=== PATIENT | female | born 1995 | race Caucasian/White ===

== ENCOUNTER 2016-08-01 01:55 | Emergency (ER) | payer SELFPAY ==
[~2016-08-01] VITALS: Ht 162.6 cm; Wt 86.0 kg
[2016-08-01 01:59] VITALS: Ht 162.6 cm; Wt 86.0 kg
[2016-08-01] MEDS ORDERED: LIDOCAINE 2% (MDV) 20 ML INJ INJ ONE (03:30)
[2016-08-01] MEDS ORDERED: IBUPROFEN 200 MG TAB PO ONE (04:00)
[2016-08-01] MEDS ORDERED: DIPHTH/TET/ACEL PERTUSS (ADULT) 0.5 ML VIAL IM* ONE (05:00)
--- NOTE | 2016-08-01 05:31 | ERD ---
ER Documentation Chief Complaint Date/Time DATE: 08/01/16 TIME: 05:26 Chief Complaint laceration to r 5th finger HPI This is a 21-year-old female presenting to the emergency department for laceration to right fifth digit. Patient states she was holding a knife when she pounded her hand on the table causing the knife to slit the inside of her right 5th digit. laceration is linear. No loss of sensation, numbness or tingling. Patient states she had active bleeding bright red blood at time of incident and bleeding soon stopped after applying pressure. Patient's last Tdap was due in 2014. ROS All systems reviewed and are negative except as per history of present illness. Allergies Allergies: Coded Allergies: No Known Allergy (Unverified , 01/30/13) PMhx/Soc Medical and Surgical Hx: pt denies Medical Hx History of Surgery: Yes (CESARIAN X1 ) Anesthesia Reaction: No Hx Neurological Disorder: No Hx Respiratory Disorders: No Hx Cardiac Disorders: No Hx Psychiatric Problems: No Hx Miscellaneous Medical Probl: No Hx Alcohol Use: Yes (SOCIAL) Hx Substance Use: No Hx Tobacco Use: No Smoking Status: Never smoker Physical Exam Vitals Vital Signs Date Time Temp Pulse Resp B/P Pulse Ox O2 Delivery O2 Flow Rate FiO2 08/01/16 01:59 98.7 92 20 135/82 100 Physical Exam Const: No acute distress Head: Atraumatic Eyes: Normal Conjunctiva ENT: Normal External Ears, Nose and Mouth. Neck: Full range of motion..~ No meningismus. Resp: Clear to auscultation bilaterally Cardio: Regular rate and rhythm, no murmurs Abd: Soft, non tender, non distended. Normal bowel sounds Skin: Linear laceration to ventral aspect of right 5th digit near web space. Back: No midline or flank tenderness Ext: No cyanosis, or edema Neur: Awake and alert Psych: Normal Mood and Affect Results 24 hrs Current Medications Medications (Trade) Dose Ordered Sig/[place] Route PRN Reason Start Time Stop Time Status Last Admin Dose Admin Lidocaine (Xylocaine 2% (Mdv) 20 ml) 20 ml ONCE ONCE INJ 08/01/16 03:30 08/01/16 03:31 DC Ibuprofen (Motrin) 400 mg ONCE ONCE PO 08/01/16 04:00 08/01/16 04:01 DC 08/01/16 04:06 Diphtheria/ Tetanus/Acell Pertussis (Adacel) 0.5 ml ONCE ONCE IM* 08/01/16 05:00 08/01/16 05:01 DC 08/01/16 05:04 Procedures/MDM MDM: This is a 21-year-old female presents emergency department for laceration of right fifth digit. Patient accidentally cut the inside of her right palm with a new knife. Laceration repair are detailed below. Laceration Repair by me:Verbal consent obtained. Anesthesia: 2% lidocaine locally Location: ventral aspect right 5th digit Tendon/Joint/Nerves: No injury Foreign body: None detected after copious irrigation and exploration Technique: 3 Simple Interrupted Sutures Complexity: No subcutaneous sutures/mucosal repair/ edge excision Post Closure Length: 2.5 cm Patient's bleeding was easily controlled in the department and there is no indication of anemia. No evidence of compartment syndrome, neurologic injury, vascular injury, open joint, tendon laceration, or foreign body. Tdap given. Patient is appropriate for outpatient follow up. 48 hour wound check. Scar minimization instructions given. Patient verbalized understanding. All questions answered at discharge. Departure Diagnosis: Primary Impression: Laceration Condition: Stable Patient Instructions: Laceration, Hand Referrals: [facility] YOU HAVE RECEIVED A MEDICAL SCREENING EXAM AND THE RESULTS INDICATE THAT YOU DO NOT HAVE A CONDITION THAT REQUIRES URGENT TREATMENT IN THE EMERGENCY DEPARTMENT. FURTHER EVALUATION AND TREATMENT OF YOUR CONDITION CAN WAIT UNTIL YOU ARE SEEN IN YOUR DOCTORS OFFICE WITHIN THE NEXT 1-2 DAYS. IT IS YOUR RESPONSIBILITY TO MAKE AN APPOINTMENT FOR FOLOW-UP CARE. IF YOU HAVE A PRIMARY DOCTOR --you should call your primary doctor and schedule an appointment IF YOU DO NOT HAVE A PRIMARY DOCTOR YOU CAN CALL OUR PHYSICIAN REFERRAL HOTLINE AT IF YOU CAN NOT AFFORD TO SEE A PHYSICIAN YOU CAN CHOSE FROM THE FOLLOWING [facility] [address] [facility]. [facility] [address] [facility] [address] [facility] [address] [facility]. [facility] [address] [facility]. [facility]. [address] [facility]. [facility] YOU HAVE RECEIVED A MEDICAL SCREENING EXAM AND THE RESULTS INDICATE THAT YOU DO NOT HAVE A CONDITION THAT REQUIRES URGENT TREATMENT IN THE EMERGENCY DEPARTMENT. FURTHER EVALUATION AND TREATMENT OF YOUR CONDITION CAN WAIT UNTIL YOU ARE SEEN IN YOUR DOCTORS OFFICE WITHIN THE NEXT 1-2 DAYS. IT IS YOUR RESPONSIBILITY TO MAKE AN APPOINTMENT FOR FOLOW-UP CARE. IF YOU HAVE A PRIMARY DOCTOR --you should call your primary doctor and schedule and appointment IF YOU DO NOT HAVE A PRIMARY DOCTOR YOU CAN CALL OUR PHYSICIAN REFERRAL HOTLINE AT . IF YOU CAN NOT AFFORD TO SEE A PHYSICIAN YOU CAN CHOSE FROM THE FOLLOWING [facility] INSTITUTIONS: [facility] [address] [place] [address] [facility] [address] [place], [place] [id number] [place] [address] [address] [place] [address] Additional Instructions: Return to ER in 2 days for wound recheck. MONTSERRAT SÁNCHEZ NP Aug 01, 2016 05:31
== END 2016-08-01 05:14 | disposition home or self-care (01) ==
LOC: FTE 01:55
DX: S61.216A Laceration without foreign body of right little finger without damage to nail, initial encounter (principal); W26.0XXA Contact with knife, initial encounter; Y92.9 Unspecified place or not applicable; Z23 Encounter for immunization
CPT/HCPCS: 90471; 90715